=== PATIENT | female | born 1995 | race Caucasian/White ===

== ENCOUNTER → 2017-09-09 | Outpatient (CLI) | payer OTHER ==
[~2017-09-09] MED LIST: ALBUAER19 INH; MTR600X PO; PRENTAB26 PO
[2017-09-09 13:51] LABS: BLOOD UREA NITROGEN 14 mg/dl (7-18); CALCIUM 8.8 mg/dl (8.5-10.1); CARBON DIOXIDE 21 mmol/L (21-32); CREATININE 0.76 mg/dl (0.60-1.20); GLUCOSE 121 mg/dl (70-99); POTASSIUM 4.3 mmol/L (3.5-5.1); SODIUM 139 mmol/L (136-145)
== END | disposition home or self-care (01) ==
LOC: C.LABPBG 09:20
PROVIDERS: ATTEND Physician Assistant
DX: R03.0 Elevated blood-pressure reading, without diagnosis of hypertension (principal)

== ENCOUNTER 2019-09-10 05:36 | Inpatient (IN) ==
--- NOTE | 2019-09-09 08:38 | Communication Note ---
Date of Service: September 09, 2019 Travel and history reviewed. Low risk. Will review on day of surgery.
--- NOTE | 2019-09-09 17:25 | History & Physical Report ---
Date of Service September 09, 2019 Assessment & Plan (1) Previous delivery affecting , antepartum: Repeat section with bilateral tubal ligation with Filshie clips. Reviewed informed consent in office. (2) Chronic hypertension affecting : History of Present Illness Chief Complaint: repeat CS Primary Care Provider: Flaquita Childress DO 24yo @ 38 08/03 here for repeat , performed during 38th week because of cHTN. complicated by: Obesity (52.2) *BMI 35 or >At start of preg, growth US @ 32wks CHTN--on labetolol *Baby ASA daily start 12-28 wks, continue until delivery *wkly NST's @32wks and twice wkly @36 wks *Serial Growth US @ 24 (doppler only if abnml) *Baseline 24hr urine 100mg (03/13) *weekly COLLIN's @ 32wk *Deliver [id number] echo - NORMAL Previous delivery affecting , antepartum - desires repeat with BTL C/S WITH TUBAL SCHEDULED FOR 09/[address] JAMES Had flu vaccine with employer in Jan 2019 Allergies Allergy/AdvReac Type Severity Reaction Status Date / Time lisinopril Allergy Mild Cough Verified 09/09/19 12:04 Home Medications Home Medications Medication Instructions Recorded Confirmed Type cetirizine 10 mg tablet 10 mg PO HS 02/12/19 09/09/19 History labetalol 100 mg tablet 100 mg PO BID #60 tab 02/20/19 09/09/19 Rx albuterol sulfate 90 mcg/actuation 2 puff INHALATION Q4H PRN #54 gm 05/05/19 09/09/19 Rx aerosol inhaler metoclopramide HCl 10 mg tablet 10 mg PO Q6H PRN #30 tab 05/07/19 09/09/19 Rx montelukast 10 mg tablet 10 mg PO HS #30 tab 05/14/19 09/09/19 Rx 21-iron fu-folic acid 1 tab PO DAILY 06/21/19 09/09/19 History valacyclovir 1 gram tablet 2,000 mg PO BID PRN #30 tab 09/03/19 09/09/19 Rx aspirin 81 mg PO HS 09/08/19 09/09/19 History escitalopram oxalate 20 mg PO HS 09/08/19 09/09/19 History famotidine [Pepcid] 20 mg PO DAILY PRN 09/08/19 09/09/19 History fluticasone furoate-vilanterol 1 puffs INH HS 09/08/19 09/09/19 History [Breo Ellipta] Patient History Medical History Abdominal wall abscess at site of surgical wound (Resolved) ALL HEALED (AT AGE 17) Asthma USED RESCUE INHALER YESTERDAY Generalized anxiety disorder GERD (gastroesophageal reflux disease) " RELATED" Hx of migraines Hypertension Irregular periods (Resolved) Obesity, morbid, BMI 50 or higher Sinus arrhythmia Surgical History History of section History of dilation and curettage History of laparoscopy EXPLORATORY LAPAROSCOPY FOR ENDOMETRIOSIS History of tonsillectomy History of tooth extraction Family History Grandmother (Maternal) Colorectal cancer Grandfather (Paternal) Diabetes Heart disease Grandfather (Maternal) Heart disease Other Myocardial infarction Denies family history of Ovarian cancer Prostate cancer Breast cancer Social History Preferred Language: Estonian Communication Ability: Effective Visual Impairment: No Limitations Hearing Ability: Normal Hand Wood Sander Required: No Beliefs That Will Affect Care: None marital status: Single marital status details: ARGENIS Ojeda (26) [phone] Current Living Situation: Family Current Living Situation Comment: 2 dogs, 1 cat- pt not changing cat litter current occupational status: employed 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 [employer] Feels Safe at Home: Yes Smoking Status: Never smoker Second Hand Exposure: No ; Hx Alcohol Use: No Hx Substance Use: No Childhood Exposure to Second-Hand Smoke: No caffeine: Yes (DAILY) Dental Care, Regularly: Yes Physical Activity Frequency: 1-2 Times per Week Seatbelt Use: always Sunscreen Use: No Review of Systems All systems reviewed & are unremarkable except as noted in HPI & below Physical Exam Constitutional: WD/WN, vitals as above Respiratory: normal respiratory effort, lungs clear to auscultation no respiratory distress Cardiovascular: Rate/Rhythm: regular rate and regular rhythm Gastrointestinal (Abdomen): Inspection/Auscultation: abdomen normal to inspection Percussion/Palpation: abdomen soft; abdomen nontender Gravid. No s/s chorio or abruption. Skin: no rashes, warm and dry Psychiatric: A+Ox3, euthymic affect Monitoring External Monitor Please see L&D flow sheet. Coding Level of Care Code None Diagnoses Previous delivery affecting , antepartum O34.219 Chronic hypertension affecting O10.919
[2019-09-10] MEDS ORDERED: LACTATED RINGER'S 1,000 ML IV SCH (05:45)
[2019-09-10 05:54] LABS: Basophils # (auto) 0.04 K/uL (0-0.2); Basophils % (auto) 0.3 %; Eosinophils # (auto) 0.19 K/uL (0-0.5); Eosinophils % (auto) 1.3 %; Hematocrit (blood only) 36.8 % (37-47); Hemoglobin 12.1 g/dL (12.0-16.0); Immature Granulocytes # (auto) 0.06 K/uL (0.00-0.02); Immature Granulocytes % (auto) 0.4 %; Lymphocytes # (auto) 2.71 K/uL (1.2-3.4); Lymphocytes % (auto) 18.3 %; Mean Corpuscular Hemoglobin 27.9 pg (25-34); Mean Corpuscular Volume 84.8 fL (80-100); Mean Platelet Volume 11.8 fL (7.4-10.4); Monocytes # (auto) 1.13 K/uL (0.11-0.59); Monocytes % (auto) 7.7 %; Neutrophils # (auto) 10.64 K/uL (1.4-6.5); Platelet Count 263 K/uL (130-400); RDW Coefficient of Variation 14.2 % (11.5-14.5); RDW Standard Deviation 43.9 fL (36.4-46.3); Red Blood Count 4.34 M/uL (4.2-5.4); White Blood Count 14.77 K/uL (4.8-10.8)
[2019-09-10] MEDS ORDERED: CITRIC ACID/SODIUM CITRATE 15 ML UDC PO SCH (06:00)
[2019-09-10] MEDS ORDERED: CEFAZOLIN 3000MG 65 ML IV SCH (06:00)
[2019-09-10 06:01] LABS: Mean Corpuscular Hgb Conc 32.9 g/dL (32-36)
--- NOTE | 2019-09-10 07:29 | History & Physical Bridge Note ---
Date of Service September 10, 2019 History & Physical Bridge Note I have examined the patient, reviewed the History & Physical and in the interval since the performance of the History & Physical I have noted the following changes of clinical significance: no changes noted
[2019-09-10] MEDS ORDERED: MoRPHine SULFATE PF 1 MG/ML 10 ML AMP/VIAL ONE (07:33)
[2019-09-10] MEDS ORDERED: OXYTOCIN 10 UNITS/ML VIAL ONE ×3 (07:41→08:33)
--- NOTE | 2019-09-10 08:05 | Anesthesiology Consultation ---
Date of Service September 10, 2019 Assessment & Plan Chart Review Chart Review: Acceptable Risk for Surgery Consults Requested none History Surgery Operation Date: 09/10/19 07:30 Proposed Procedures p Section in LD - Juana James DO s Post Tubal Ligation Labor & Deliv - Juana James DO Height/Weight Height: 5 ft 4 in Weight: 140.614 kg Allergies Allergy/AdvReac Type Severity Reaction Status Date / Time lisinopril Allergy Mild Cough Verified 09/09/19 12:04 Medications Home Medications Medication Instructions Recorded Confirmed Last Taken cetirizine 10 mg tablet 10 mg PO HS 02/12/19 09/10/19 09/09/19 20:00 labetalol 100 mg tablet 100 mg PO BID #60 tab 02/20/19 09/10/19 09/09/19 20:00 albuterol sulfate 90 mcg/actuation 2 puff INHALATION Q4H PRN #54 gm 05/05/19 09/09/19 06/21/19 20:00 aerosol inhaler metoclopramide HCl 10 mg tablet 10 mg PO Q6H PRN #30 tab 05/07/19 09/09/19 Unknown montelukast 10 mg tablet 10 mg PO HS #30 tab 05/14/19 09/09/19 06/21/19 22:40 21-iron fu-folic acid 1 tab PO DAILY 06/21/19 09/09/19 06/21/19 22:42 valacyclovir 1 gram tablet 2,000 mg PO BID PRN #30 tab 09/03/19 09/09/19 Unknown aspirin 81 mg PO HS 09/08/19 09/10/19 09/09/19 20:00 escitalopram oxalate 20 mg PO HS 09/08/19 09/10/19 09/09/19 20:00 famotidine [Pepcid] 20 mg PO DAILY PRN 09/08/19 09/09/19 Unknown fluticasone furoate-vilanterol 1 puffs INH 09/08/19 09/10/19 09/09/19 20:00 [Breo Ellipta] NPO Date Last Intake of Fluids: 09/09/19 Time Last Intake of Fluids: 00:00 Date Last Intake of Solids: 09/09/19 Time Last Intake of Solids: 23:00 Past Medical History Medical History Abdominal wall abscess at site of surgical wound (Resolved) ALL HEALED (AT AGE 17) Asthma USED RESCUE INHALER YESTERDAY Generalized anxiety disorder GERD (gastroesophageal reflux disease) " RELATED" Hx of migraines Hypertension Irregular periods (Resolved) Obesity, morbid, BMI 50 or higher Sinus arrhythmia Past Family History Family History Grandmother (Maternal) Colorectal cancer Grandfather (Paternal) Diabetes Heart disease Grandfather (Maternal) Heart disease Other Myocardial infarction Denies family history of Ovarian cancer Prostate cancer Breast cancer Past Surgical History Surgical History History of section History of dilation and curettage History of laparoscopy EXPLORATORY LAPAROSCOPY FOR ENDOMETRIOSIS History of tonsillectomy History of tooth extraction Social History Smoking Status: Never smoker Do You Dip or Chew Tobacco: No Hx Alcohol Use: No Hx Substance Use: No substance use type: does not use Physical Exam Vital Signs Last Vital Signs Temp 37.1 C 09/10/19 07:07 Pulse 88 09/10/19 07:07 Resp 20 09/10/19 07:07 BP 127/85 09/10/19 07:07 Testing Laboratory Results 09/10/19 05:44 Blood Type O Positive 09/10/19 05:44 Antibody Screen NEGATIVE 09/10/19 05:44
[2019-09-10] MEDS ORDERED: PHENYLEPHRINE 100MCG/ML 5ML SYR ONE (08:34)
--- NOTE | 2019-09-10 08:58 | Operative Report ---
PG Post Operative Report Pre & Post Diagnosis Operation Date: 09/10/19 07:30 Pre-Op Diagnosis: History of Section; Chronic Hypertension; Desires Sterilization Post-Op Diagnosis: Same; Delivery of a live male child at 0814 I identified the patient and participated in the time-out.: Yes Procedure Operation Date: 09/10/19 07:30 Actual Procedures p Repeat low transverse Section in LD - Juana James, s Tubal Ligation with Filshie clips - Juana James DO Surgeon Juana James, Supplier Development Manager Quang Christianson MD, Pk Stanley MD PGY1 Estimated Blood Loss 800 Findings Consistent with Post-Op Diagnosis Viable male , Apgars 8/9 Wt 7# 7.5oz. Normal appearing uterus, tubes, ovaries. Specimens placenta, cord blood, cord gases. Drains macedo clear yellow Anesthesia Type Spinal Complications none Disposition Accompanied Patient To Recovery: Yes Disposition: L&D Indications 24yo @ 38 08/03 with cHTN, h/o section with desire for repeat, desire for sterilization. Description of Procedure The patient was seen in the preoperative labor room, questions were answered. She had previously signed informed consent under no duress in the office. She agreed to proceed to the OR. She is taken to the operating room, spinal anesthesia was administered. She is prepared and draped in the usual sterile fashion in the supine position with a leftward tilt. She was given 3 g of Ancef preoperatively. Timeout was confirmed. A Pfannenstiel skin incision was made with a scalpel, and carried down to the underlying layer of fascia. The fascia was nicked at midline, this incision was extended bilaterally. The superior aspect of the fascial incision was grasped with Wilbert clamps x2, elevated off the underlying rectus abdominis muscles, and dissected sharply and bluntly. In a similar fashion, the inferior aspect of the fascial incision was dissected. The rectus abdominis muscles were at midline, and the peritoneum was entered bluntly digitally. This incision was extended bilaterally. The bladder blade was placed, the bladder flap was created using Metzenbaum scissors. The bladder blade was replaced. A low transverse uterine incision was made with a new scalpel, and this incision was extended bilaterally. Clear amniotic flat fluid was noted. The baby was delivered from a cephalic presentation, no nuchal cord noted. The 's head, followed by bilateral shoulders and body were delivered. Spontaneous cry was heard. The cord was doubly clamped and cut, and the baby was handed off to the waiting pediatrics team. A segment was retained for cord gases. Cord blood was obtained, and the placenta was delivered spontaneously intact with a three- vessel cord. The uterus was exteriorized and swept of all clots and debris. The hysterotomy incision was reapproximated using 0 Vicryl in a running locked stitch. A second layer of the same suture was used to imbricate. The posterior uterus was evaluated and normal. The tubal ligation was performed. Starting with the right fallopian tube, it was tracked out to its fimbria to ensure proper anatomy, and the Filshie clip was gently placed across the tube. In similar fashion, the left fallopian tube was clipped. The uterus was then returned to the abdomen. The hysterotomy was reinspected and found to be hemostatic. The gutters were cleared of clots and debris. The fascial incision was reapproximated using 0 Vicryl in a running stitch. The subcutaneous tissue was irrigated, and reapproximated using 2-0 plain gut in a running stitch. The skin was then reapproximated using 4-0 Vicryl in a running subcuticular stitch. A gaurav dressing was applied to aid in wound healing due to patient's body habitus. She tolerated the procedure well, sponge, instrument, needle counts were correct at the conclusion of the case x2. She was taken to her labor room to recover. I attest to the content of the Intraoperative Record and any orders documented therein. Any exceptions are noted below.
[2019-09-10] MEDS ORDERED: MoRPHine SULFATE PF 1 MG/ML 10 ML AMP/VIAL INT SPINAL ONE (09:07)
[2019-09-10] MEDS ORDERED: PROMETHAZINE HCL 25 MG in SODIUM CHLORIDE 0.9% 50 ML IV PRN (09:07)
[2019-09-10] MEDS ORDERED: HYDROmorphone INJ 0.5 MG/0.5 ML SYR IV PRN (09:07)
[2019-09-10] MEDS ORDERED: MEPERIDINE HCL 25 MG/ML CARP/VIAL IV PRN (09:07)
[2019-09-10] MEDS ORDERED: NALOXONE HCL 0.08 MG in SYRINGE 1.8 ML IV PRN (09:07)
[2019-09-10] MEDS ORDERED: METOCLOPRAMIDE HCL 20 MG in SODIUM CHLORIDE 0.9% 50 ML IV PRN (09:07)
[2019-09-10] MEDS ORDERED: MoRPHine SULFATE 2 MG/ML CARP IV PRN (09:07)
[2019-09-10] MEDS ORDERED: ePHEDrine sulfate 50 MG/ML AMP IV PRN (09:07)
[2019-09-10] MEDS ORDERED: NALBUPHINE HCL INJ 10 MG/ML AMP IV PRN (09:07)
[2019-09-10] MEDS ORDERED: LACTATED RINGER'S 500 ML IV PRN (09:07)
[2019-09-10] MEDS ORDERED: DiphenhydrAMINE HCL 50 MG/ML VIAL IV PRN (09:07)
[2019-09-10] MEDS ORDERED: NALOXONE HCL 1 MG in SODIUM CHLORIDE 0.9% 1000ML 1,000 ML IV PRN (09:07)
[2019-09-10] MEDS ORDERED: ONDANSETRON INJ 2 MG/ML 2 ML VIAL IV PRN (09:07)
[2019-09-10] MEDS ORDERED: NALOXONE HCL 0.4 MG/1 ML VIAL/CARP IV PRN (09:07)
[2019-09-10] MEDS ORDERED: SODIUM CHLORIDE 0.9% 1000ML 1,000 ML IV SCH (09:15)
[2019-09-10] MEDS ORDERED: DC INTRASPINAL MORPHINE SCH (09:15)
[2019-09-10] MEDS ORDERED: NO NARCOTICS OR SEDATIVES SCH (09:15)
[2019-09-10 09:28] LABS: Base Excess Cord Venous Blood 0.4 mEq/L (-7.7-1.9); CO2 Cord Arterial Blood 54 mmHg (39.1-73.5); Cord Venous Blood HCO3 26 mmol/L (18.4-26.8); Cord Venous Blood PCO2 45 mmHg (30.4-57.2); Cord Venous Blood PO2 27 mmHg (14.1-43.3); Cord Venous Blood pH 7.38 (7.20-7.44); HCO3 Cord Arterial Blood 27 mmol/L (19.7-28.5); Oxygen Sat Cord Arterial Blood < 60.0 % (<60); PO2 Cord Arterial Blood 16 mmHg (4.1-31.7); pH Cord Arterial Blood 7.32 (7.1-7.38)
[2019-09-10 09:29] LABS: O2 Saturation Cord Venous Bld < 60.0 % (<68)
[2019-09-10] MEDS: KETOROLAC 30 MG/ML VIAL IV PRN ×3 (09:38→23:02)
[2019-09-10] MEDS ORDERED: DIPHTHERIA/TETANUS/PERTUSSIS 0.5 ML SYR/VIAL IM ONE (10:01)
[2019-09-10] MEDS ORDERED: SUPERCREAM 0.870% 15 GM JAR EXT PRN (10:01)
[2019-09-10] MEDS ORDERED: BENZOCAINE 20% AER SPR 82.5 GM CAN EXT PRN (10:01)
[2019-09-10] MEDS ORDERED: ALBUTEROL HFA 8 GM INHALER INH PRN (10:01)
[2019-09-10] MEDS ORDERED: HYDROCORTISONE ACETATE 25 MG SUPP PR PRN (10:01)
[2019-09-10] MEDS ORDERED: FAMOTIDINE 20 MG TAB PO PRN (10:01)
--- NOTE | 2019-09-10 10:31 | Anesthesiology Progress Note ---
Date of Service September 10, 2019 Anesthesia Post Procedure Vital Signs Vital Signs: Temp Pulse Resp BP Pulse Ox 09/10/19 10:27 70 98 09/10/19 10:24 74 114/68 09/10/19 10:22 75 98 09/10/19 10:17 77 96 09/10/19 10:14 76 115/68 09/10/19 10:12 66 98 09/10/19 10:09 61 93 09/10/19 10:07 54 L 96 09/10/19 10:04 61 113/68 09/10/19 10:02 54 L 95 09/10/19 10:00 36.4 C L 20 09/10/19 09:57 53 L 96 09/10/19 09:54 65 115/59 L 09/10/19 09:52 71 97 09/10/19 09:47 66 97 09/10/19 09:44 81 128/60 09/10/19 09:42 61 98 09/10/19 09:40 36.4 C L 18 09/10/19 09:37 77 96 09/10/19 09:34 70 117/59 L 09/10/19 09:32 74 96 09/10/19 09:30 18 09/10/19 09:27 76 96 09/10/19 09:24 82 113/55 L 09/10/19 09:22 75 95 09/10/19 09:20 18 09/10/19 09:17 81 96 09/10/19 09:14 77 131/63 09/10/19 09:12 78 97 09/10/19 09:10 18 09/10/19 09:07 80 97 09/10/19 09:02 87 129/70 97 09/10/19 09:00 36.5 C 20 09/10/19 07:07 37.1 C 88 20 127/85 09/10/19 06:13 37.1 C 09/10/19 05:58 102 H 135/93 09/10/19 05:52 18 Pain Intensity Bilateral Abdomen: Pain Intensity: 1 Transfer of Care Handoff Completed per policy Notes Mental Status: alert / awake / arousable and participated in evaluation Patient Amnestic to Procedure: Yes Nausea / Vomiting: adequately controlled Pain: adequately controlled Airway Patency, RR, SpO2: stable & adequate BP & HR: stable & adequate Hydration State: stable & adequate Neuraxial Anesthesia: was administered and sensory block is resolving Anesthetic Complications: no major complications apparent
[2019-09-10] MEDS: OXYTOCIN 20 UNITS in LACTATED RINGER'S 1,000 ML IV SCH ×2 (10:39→19:15)
[2019-09-10] MEDS ORDERED: MEASLES, MUMPS & RUBELLA VIRUS VIAL SQ ONE (15:07)
[2019-09-10] MEDS: FLUTICASONE/VILANTEROL 100/25MCG 14 PUFFS/INHALER INH SCH (20:41)
[2019-09-10] MEDS: DOCUSATE SODIUM 100 MG CAP PO SCH (20:42)
[2019-09-10] MEDS: ESCITALOPRAM OXALATE 20 MG TAB PO SCH (20:42)
[2019-09-10] MEDS: LABETALOL HCL 100 MG TAB PO SCH (20:42)
[2019-09-10] MEDS: MONTELUKAST SODIUM 10 MG TABLET PO SCH (20:43)
[2019-09-10] MEDS: CETIRIZINE HCL 10 MG TABLET PO SCH (20:43)
[2019-09-11] MEDS ORDERED: ONDANSETRON INJ 2 MG/ML 2 ML VIAL IV PRN (03:08)
[2019-09-11] MEDS ORDERED: DiphenhydrAMINE HCL 50 MG/ML VIAL IV PRN (03:08)
[2019-09-11] MEDS ORDERED: KETOROLAC 30 MG/ML VIAL IV PRN (03:08)
[2019-09-11] MEDS: IBUPROFEN 600 MG TAB PO PRN ×5 (03:18→20:59)
[2019-09-11] MEDS: OXYCODONE/ACETAMINOPHEN 5mg/325mg TAB PO PRN ×5 (03:18→21:00)
--- NOTE | 2019-09-11 06:09 | Obstetrical Progress Note ---
Date of Service September 11, 2019 Assessment & Plan (1) Status post : Luly is a 24 yo with chronic hypertension on POD 1 after repeat C/S and bilateral tubal ligation at 38w - GBS -, Blood Type O+, Rubella eqivacole -Vitals reviewed and WNL -Hemoglobin reviewed: 12.1 down to 10.7 -patient is doing clinically well Continue routine post-operative care - After discharge will have [address] James. (2) Chronic hypertension affecting : - continue labetolol 100mg, BID - we will discontinue aspirin at this time - BP currently at 112/72 Admission and Anticipated Discharge Date Admission Date: September 10, 2019 Supervising Physician Co-Signing Physician Notes Resident Physician Supervision Note: I interviewed and examined the patient. Discussed with Dr. Stanley and agree with findings and plan as documented in the note. Any exceptions or clarifications are listed here: POD#1 doing well. Continue routine postop care. Documented By: Juana James, Subjective Ambulation: ambulating normally Voiding: no voiding problems Passing Gas:: Yes Diet Tolerance:: regular diet Lochia:: Small Feeding Type:: bottle feeding Review of Systems Constitutional: no fever, no chills and no sweats Respiratory: no cough and no dyspnea Cardiovascular: no chest pain and no palpitations Gastrointestinal: no nausea and no vomiting Genitourinary: no dysuria and no urinary frequency Neurologic: no headache(s) Physical Exam Constitutional: WD/WN, vitals as above no acute distress Respiratory: normal respiratory effort, lungs clear to auscultation does not use accessory muscles Auscultation: no crackles, no rhonchi, no wheezes and no pleural rub Cardiovascular: Rate/Rhythm: regular rate and regular rhythm Heart Sounds: normal S1 and normal S2; no gallop, no murmur and no cardiac rub Extremities: no calf tenderness and no pedal edema Gastrointestinal (Abdomen): Inspection/Auscultation: normal bowel sounds; abdomen not distended Percussion/Palpation: abdomen soft surgical incision:RAIZA dressing in place; minimal dried blood visible; no warmth; appropriate post-op tenderness Genitourinary: Uterus: fundus firm, palpable 1 cm below the umbilicus Results & Data ([facility]) Vital Signs (Past 12 Hours) Vital Signs Temp Pulse Resp BP Pulse Ox 05/15/20 03:20 37.1 C 85 16 112/72 98 09/11/19 02:15 14 94 09/11/19 01:19 16 93 09/11/19 00:05 16 97 09/10/19 23:15 37.1 C 92 H 16 117/73 96 09/10/19 22:00 18 98 09/10/19 21:00 18 100 09/10/19 20:00 18 99 09/10/19 19:30 36.9 C 92 H 18 121/73 09/10/19 19:00 18 100 Resident Activity Tracking Resident Involvement: Resident Care Provided Care Provided: OB Delivery
[2019-09-11 06:36] LABS: Basophils # (auto) 0.02 K/uL (0-0.2); Basophils % (auto) 0.1 %; Eosinophils # (auto) 0.07 K/uL (0-0.5); Eosinophils % (auto) 0.5 %; Hemoglobin 10.7 g/dL (12.0-16.0); Immature Granulocytes # (auto) 0.03 K/uL (0.00-0.02); Immature Granulocytes % (auto) 0.2 %; Lymphocytes # (auto) 1.76 K/uL (1.2-3.4); Mean Corpuscular Hemoglobin 27.8 pg (25-34); Mean Corpuscular Hgb Conc 32.4 g/dL (32-36); Mean Corpuscular Volume 85.7 fL (80-100); Mean Platelet Volume 11.2 fL (7.4-10.4); Monocytes # (auto) 0.99 K/uL (0.11-0.59); Monocytes % (auto) 7.3 %; Neutrophils # (auto) 10.68 K/uL (1.4-6.5); Neutrophils % (auto) 78.9 %; Platelet Count 224 K/uL (130-400); RDW Coefficient of Variation 14.6 % (11.5-14.5); RDW Standard Deviation 44.9 fL (36.4-46.3); Red Blood Count 3.85 M/uL (4.2-5.4); White Blood Count 13.55 K/uL (4.8-10.8)
[2019-09-11] MEDS: PRENATAL VITAMIN 1 TAB PO SCH (09:04)
[2019-09-11] MEDS: DOCUSATE SODIUM 100 MG CAP PO SCH ×2 (09:04→20:22)
[2019-09-11] MEDS: LABETALOL HCL 100 MG TAB PO SCH ×2 (09:06→20:59)
[2019-09-11] MEDS ORDERED: MEASLES, MUMPS & RUBELLA VIRUS VIAL SQ ONE (17:00)
[2019-09-11] MEDS ORDERED: bisacodyL 5 MG TABEC PO SCH (20:00)
[2019-09-11] MEDS: ESCITALOPRAM OXALATE 20 MG TAB PO SCH (20:22)
[2019-09-11] MEDS: CETIRIZINE HCL 10 MG TABLET PO SCH (20:22)
[2019-09-11] MEDS: MONTELUKAST SODIUM 10 MG TABLET PO SCH (20:22)
[2019-09-11] MEDS: FLUTICASONE/VILANTEROL 100/25MCG 14 PUFFS/INHALER INH SCH (20:23)
[2019-09-12] MEDS: IBUPROFEN 600 MG TAB PO PRN ×3 (01:05→12:18)
[2019-09-12] MEDS: OXYCODONE/ACETAMINOPHEN 5mg/325mg TAB PO PRN ×3 (01:06→12:19)
[2019-09-12 06:36] LABS: Hematocrit (blood only) 32.8 % (37-47); Hemoglobin 10.2 g/dL (12.0-16.0)
--- NOTE | 2019-09-12 07:51 | Obstetrical Progress Note ---
Date of Service September 12, 2019 Assessment & Plan (1) Status post : - doing well - desires d/c - instructions given - remove wound vac 09/16 Subjective Ambulation: ambulating normally Voiding: no voiding problems Physical Exam Constitutional WD/WN, vitals as above Respiratory normal respiratory effort, lungs clear to auscultation Cardiovascular RRR, no murmur, no edema Gastrointestinal (Abdomen) Wound Vac in place, appropriate post-op tenderness Musculoskeletal (-) deep calf tenderness Results & Data Vital Signs (Past 12 Hours) Vital Signs Temp Pulse Resp BP Pulse Ox 09/12/19 00:00 97.9 F 69 18 122/72 97 09/11/19 19:55 98.8 F 97 H 18 134/78 97
[2019-09-12] MEDS: LABETALOL HCL 100 MG TAB PO SCH (08:17)
[2019-09-12] MEDS: DOCUSATE SODIUM 100 MG CAP PO SCH (08:18)
[2019-09-12] MEDS: PRENATAL VITAMIN 1 TAB PO SCH (08:18)
[2019-09-12] MEDS ORDERED: bisacodyL 10 MG SUPP PR PRN (09:03)
[2019-09-12] MEDS ORDERED: MEASLES, MUMPS & RUBELLA VIRUS VIAL SQ ONE (10:00)
--- NOTE | 2019-09-22 08:17 | Discharge Summary ---
Date of Service September 22, 2019 Admission HPI Per Admitting Provider 24yo @ 38 08/03 here for repeat , performed during 38th week because of cHTN. complicated by: Obesity (52.2) *BMI 35 or >At start of preg, growth US @ 32wks CHTN--on labetolol *Baby ASA daily start 12-28 wks, continue until delivery *wkly NST's @32wks and twice wkly @36 wks *Serial Growth US @ 24 (doppler only if abnml) *Baseline 24hr urine 100mg (03/13) *weekly COLLIN's @ 32wk *Deliver [id number] echo - NORMAL Previous delivery affecting , antepartum - desires repeat with BTL C/S WITH TUBAL SCHEDULED FOR 09/[address] JAMES Had flu vaccine with employer in Jan 2019 Discharge Data Procedures Performed Operation Date: 09/10/19 07:30 Actual Procedures p Section in - Juana James DO s Post Tubal Ligation Labor & Deliv - Juana James DO Hospital Course (1) Supervision of high risk , antepartum: Admitted after planned repeat and tubal ligation. Routine postop care. DC home POD#2. Coding Level of Care Code None Diagnoses Supervision of high risk , antepartum O09.90
== END 2019-09-12 13:45 | disposition home or self-care (01) | DRG 784 ==
LOC: 4S1 05:36 → EDSTATUS 07:30 → 4S2 11:15
PROC: M.PPTLD (2019-09-10 07:30)
DX: O99.214 Obesity complicating childbirth; Z79.82 Long term (current) use of aspirin; E66.9 Obesity, unspecified; O99.52 Diseases of the respiratory system complicating childbirth; Z79.899 Other long term (current) drug therapy; J45.909 Unspecified asthma, uncomplicated; Z82.49 Family history of ischemic heart disease and other diseases of the circulatory system; F41.1 Generalized anxiety disorder; Z88.8 Allergy status to other drugs, medicaments and biological substances; O10.92 Unspecified pre-existing hypertension complicating childbirth; Z3A.38 38 weeks gestation of pregnancy; O34.211 Maternal care for low transverse scar from previous cesarean delivery; O99.344 Other mental disorders complicating childbirth; Z30.2 Encounter for sterilization